=== PATIENT | female | born 1975 ===

== ENCOUNTER 2019-04-07 02:29 | Inpatient (IN) | payer SELFPAY ==
[2019-04-07] MEDS ORDERED: Nalbuphine 10 MG/1 ML Vial IVPUSH PRN (02:43)
[2019-04-07] MEDS ORDERED: Water For Irrigation,Sterile 1,000 ML Container IRR PRN (02:43)
[2019-04-07] MEDS ORDERED: Methylergonovine 0.2 MG/1 ML Amp IM PRN ×2 (02:43→04:34)
[2019-04-07] MEDS ORDERED: Ondansetron 4 MG/2 ML SDV IVPUSH PRN ×2 (02:43→04:34)
[2019-04-07] MEDS ORDERED: Sodium Chloride 0.9% 10 ML SDV IV PRN (02:43)
[2019-04-07] MEDS ORDERED: Carboprost Tromethamine 250 MCG/1 ML Amp IM PRN (02:43)
[2019-04-07] MEDS ORDERED: Butorphanol 1 MG/ML SDV IVPUSH PRN (02:43)
[2019-04-07] MEDS ORDERED: Tranexamic Acid 1,000 MG in Sodium Chloride 0.9% 100 ML IV PRN (02:43)
[2019-04-07] MEDS ORDERED: Misoprostol 200 MCG Tab PO PRN (02:43)
[2019-04-07] MEDS ORDERED: Sodium Chloride 0.9% 2.5 ML Syringe FLUSH PRN (02:43)
[2019-04-07] MEDS ORDERED: Sodium Chloride 0.9% 10 ML Syringe FLUSH PRN (02:43)
[2019-04-07] MEDS ORDERED: Lidocaine 1% 50 ML MDV INJECT PRN (02:43)
[2019-04-07] MEDS ORDERED: Oxytocin/0.9 % Sodium Chloride 30 UNIT/500 ML BAG IV SCH (02:45)
[2019-04-07] MEDS ORDERED: Clindamycin Phosphate in D5W 900 MG in Premix Bag 1 BAG IV SCH ×2 (02:45)
[2019-04-07] MEDS: Lactated Ringers 1,000 ML IV SCH ×2 (03:06→03:52)
--- NOTE | 2019-04-07 03:46 | PCM.PREANE ---
Preanesthetic Assessment - Procedure Proposed Procedure: Labor epidural - Anesthesia/Transfusion/Family Hx Anesthesia History: Prior Anesthesia Without Reaction Family History of Anesthesia Reaction: No - Review of Systems General: No Symptoms Pulmonary: No Symptoms Cardiovascular: No Symptoms Gastrointestinal: No Symptoms Neurological: No Symptoms Other: Reports: None - Physical Assessment NPO Status Date: 04/07/19 NPO Status Time: 03:24 Height: 5 ft 5 in Weight: 77.111 kg ASA Class: 2 Mental Status: Alert & Oriented x3 Airway Class: Mallampati = 2 Dentition: Reports: Normal Dentition Thyro-Mental Finger Breadths: 3 ROM/Head Extension: Full Lungs: Clear to Auscultation, Normal Respiratory Effort Cardiovascular: Regular Rate, Regular Rhythm Other: - 7 cm dilated after SROM - Lab Values: Laboratory Last Values WBC 10.11 K/uL (4.0-11.0) 04/07/19 02:58 RBC 4.49 M/uL (4.30-5.90) 04/07/19 02:58 Hgb 14.5 g/dL (12.0-16.0) 04/07/19 02:58 Hct 41.0 % (36.0-46.0) 04/07/19 02:58 MCV 91.3 fL (80.0-98.0) 04/07/19 02:58 MCH 32.3 pg (27.0-32.0) H 04/07/19 02:58 MCHC 35.4 g/dL (31.0-37.0) 04/07/19 02:58 RDW Std Deviation 45.8 fl (28.0-62.0) 04/07/19 02:58 RDW Coeff of Earl 14 % (11.0-15.0) 04/07/19 02:58 Plt Count 179 K/uL (150-400) 04/07/19 02:58 MPV 12.40 fL (7.40-12.00) H 04/07/19 02:58 Nucleated RBC % 0.0 /100WBC 04/07/19 02:58 Nucleated RBCs # 0 K/uL 04/07/19 02:58 - Allergies Allergies/Adverse Reactions: Allergies Allergy/AdvReac Type Severity Reaction Status Date / Time Penicillins Allergy unknown Verified 02/23/15 04:52 - Acknowledgements Anesthesia Type Planned: Epidural Pt an Appropriate Candidate for the Planned Anesthesia: Yes Alternatives and Risks of Anesthesia Discussed w Pt/Guardian: Yes Pt/Guardian Understands and Agrees with Anesthesia Plan: Yes PreAnesthesia Questionnaire - SUBSTANCE USE Smoking Status *Q: Never Smoker Second Hand Smoke Exposure: No Recreational Drug Use History: No - HOME MEDS Home Medications: Home Meds Acetaminophen/HYDROcodone [[place] 325-5 MG] 1 tab PO Q4H PRN #40 tab 02/24/15 [Rx ] Docusate Sodium [Colace] 100 mg PO BID #30 cap 02/24/15 [Rx] - CURRENT (IN HOUSE) MEDS Current Meds: Current Medications Butorphanol Tartrate (Stadol) 1 mg IVPUSH Q1H PRN PRN Reason: Pain Carboprost Tromethamine (Hemabate Ds) 250 mcg IM ASDIRECTED PRN PRN Reason: Post Hemorrhage Clindamycin Phosphate 900 mg/ (Premix) 50 mls @ 100 mls/hr IV Q8H [facility] Last Admin: 04/07/19 03:06 Dose: 100 mls/hr Lactated Ringer's (Ringers, Lactated) 1,000 mls @ 150 mls/hr IV ASDIRECTED [facility] Last Admin: 04/07/19 03:06 Dose: 150 mls/hr Oxytocin/Sodium Chloride (Oxytocin 30 Unit/500 Ml-Ns) 30 unit in 500 mls @ 500 mls/hr IV TITRATE [facility] Tranexamic Acid 1,000 mg/ (Sodium Chloride) 110 mls @ 660 mls/hr IV ONETIME PRN PRN Reason: Bleeding Lidocaine HCl (Xylocaine 1%) 50 ml INJECT ONETIME PRN PRN Reason: Laceration repair Methylergonovine Maleate (Methergine) 0.2 mg IM ASDIRECTED PRN PRN Reason: Post Hemorrhage Misoprostol (Cytotec) 200 mcg PO ONETIME PRN PRN Reason: Post Hemorrhage Nalbuphine HCl (Nubain) 10 mg IVPUSH Q1H PRN PRN Reason: Pain (severe 7-10) Ondansetron HCl (Zofran) 4 mg IVPUSH Q4H PRN PRN Reason: Nausea/Vomiting Sodium Chloride (Saline Flush) 10 ml FLUSH ASDIRECTED PRN PRN Reason: Keep Vein Open Sodium Chloride (Saline Flush) 2.5 ml FLUSH ASDIRECTED PRN PRN Reason: Keep Vein Open Sodium Chloride (Normal Saline) 10 ml IV ASDIRECTED PRN PRN Reason: IV Use Sterile Water (Sterile Water For Irrigation) 1,000 ml IRR ASDIRECTED PRN PRN Reason: delivery Discontinued Medications Fentanyl/Bupivacaine HCl (Minajdgb-Koesy-Oh 2 Mcg/Ml-0.125%) Confirm Administered Dose 100 mls @ as directed .ROUTE .[facility] ONE Stop: 04/07/19 03:19
[2019-04-07] MEDS ORDERED: Bisacodyl 10 MG Supp RECTAL PRN (04:34)
[2019-04-07] MEDS ORDERED: Lanolin 100% Cream 7 GM Tube TOP PRN (04:34)
[2019-04-07] MEDS ORDERED: Acetaminophen/oxyCODONE 325-5 MG Tab PO PRN ×2 (04:34)
[2019-04-07] MEDS ORDERED: diphenhydrAMINE 50 MG/ML SDV IVPUSH PRN (04:34)
--- NOTE | 2019-04-07 04:34 | PCM.DEL ---
L & D Note - General Info Date of Service: 04/07/19 Mother's Due Date: 04/29/19 - Delivery Note Labor: Spontaneous Delivery Outcome: Livebirth Infant Delivery Mode: Spontaneous Presentation: Left Occiput Anterior (CHRISTEN) Nuchal Cord: None Prep: Other Anesthesia Type: None Amniotic Fluid Description: Clear Episiotomy Type: None Laceration: None Placenta: Intact, Spontaneous Cord: 3 Vessels Estimated Blood Loss: 200 Resuscitation Needed: No : Suctioned Score 1 min: 8 Score 5 min: 9 - General Info Date of Service: 04/07/19 - Patient Data Weight - Most Recent: 77.111 kg Lab Results Last 24 Hours: Laboratory Results - last 24 hr 04/07/19 04/07/19 Range/Units 02:58 02:58 WBC 10.11 (4.0-11.0) K/uL RBC 4.49 (4.30-5.90) M/uL Hgb 14.5 (12.0-16.0) g/dL Hct 41.0 (36.0-46.0) % MCV 91.3 (80.0-98.0) fL MCH 32.3 H (27.0-32.0) pg MCHC 35.4 (31.0-37.0) g/dL RDW Std Deviation 45.8 (28.0-62.0) fl RDW Coeff of Earl 14 (11.0-15.0) % Plt Count 179 (150-400) K/uL MPV 12.40 H (7.40-12.00) fL Nucleated RBC % 0.0 /100WBC Nucleated RBCs # 0 K/uL Blood Type B POSITIVE Antibody Screen NEGATIVE Med Orders - Current: Current Medications Butorphanol Tartrate (Stadol) 1 mg IVPUSH Q1H PRN PRN Reason: Pain Carboprost Tromethamine (Hemabate Ds) 250 mcg IM ASDIRECTED PRN PRN Reason: Post Hemorrhage Clindamycin Phosphate 900 mg/ (Premix) 50 mls @ 100 mls/hr IV Q8H [facility] Last Admin: 04/07/19 03:06 Dose: 100 mls/hr Lactated Ringer's (Ringers, Lactated) 1,000 mls @ 150 mls/hr IV ASDIRECTED [facility] Last Admin: 04/07/19 03:52 Dose: 150 mls/hr Oxytocin/Sodium Chloride (Oxytocin 30 Unit/500 Ml-Ns) 30 unit in 500 mls @ 500 mls/hr IV TITRATE [facility] Tranexamic Acid 1,000 mg/ (Sodium Chloride) 110 mls @ 660 mls/hr IV ONETIME PRN PRN Reason: Bleeding Lidocaine HCl (Xylocaine 1%) 50 ml INJECT ONETIME PRN PRN Reason: Laceration repair Methylergonovine Maleate (Methergine) 0.2 mg IM ASDIRECTED PRN PRN Reason: Post Hemorrhage Misoprostol (Cytotec) 200 mcg PO ONETIME PRN PRN Reason: Post Hemorrhage Nalbuphine HCl (Nubain) 10 mg IVPUSH Q1H PRN PRN Reason: Pain (severe 7-10) Ondansetron HCl (Zofran) 4 mg IVPUSH Q4H PRN PRN Reason: Nausea/Vomiting Sodium Chloride (Saline Flush) 10 ml FLUSH ASDIRECTED PRN PRN Reason: Keep Vein Open Sodium Chloride (Saline Flush) 2.5 ml FLUSH ASDIRECTED PRN PRN Reason: Keep Vein Open Sodium Chloride (Normal Saline) 10 ml IV ASDIRECTED PRN PRN Reason: IV Use Sterile Water (Sterile Water For Irrigation) 1,000 ml IRR ASDIRECTED PRN PRN Reason: delivery Discontinued Medications Fentanyl/Bupivacaine HCl (Euwnmcwa-Ddbca-Gd 2 Mcg/Ml-0.125%) Confirm Administered Dose 100 mls @ as directed .ROUTE .[facility] ONE Stop: 04/07/19 03:19 - Problem List & Annotations (1) premature rupture of membranes (PPROM) delivered, current hospitalization SNOMED Code(s): 588050163, 828971306 Code(s): O42.919 - PRETRM MIGUEL A ROM, UNSP TIME BETW RUPT AND ONST LABR, UNSP TRI Status: Acute Current Visit: Yes - Problem List Review Problem List Initiated/Reviewed/Updated: Yes - My Orders Last 24 Hours: My Active Orders 04/07/19 02:43 Patient Status [ADT] Routine Heart Tones [RC] CONTINUOUS Non Stress Test [RC] PER UNIT ROUTINE May Shower [RC] ASDIRECTED Notify Provider [RC] PRN Up ad Lainey [RC] ASDIRECTED Vaginal Exam [RC] PRN Vital Signs [RC] PER UNIT ROUTINE Butorphanol [Stadol] 1 mg IVPUSH Q1H PRN Carboprost Tromethamine [Hemabate DS] 250 mcg IM ASDIRECTED PRN Lidocaine 1% [Xylocaine 1%] 50 ml INJECT ONETIME PRN Methylergonovine [Methergine] 0.2 mg IM ASDIRECTED PRN Nalbuphine [Nubain] 10 mg IVPUSH Q1H PRN Ondansetron [Zofran] 4 mg IVPUSH Q4H PRN Sodium Chloride 0.9% [Normal Saline] 10 ml IV ASDIRECTED PRN Sodium Chloride 0.9% [Saline Flush] 10 ml FLUSH ASDIRECTED PRN Sodium Chloride 0.9% [Saline Flush] 2.5 ml FLUSH ASDIRECTED PRN Tranexamic Acid [Cyklokapron] 1,000 mg Sodium Chloride 0.9% [Normal Saline] 100 ml IV ONETIME Water For Irrigation,Sterile [Sterile Water for Irrigation] 1,000 ml IRR ASDIRECTED PRN miSOPROStoL [Cytotec] 200 mcg PO ONETIME PRN Scalp Electrode [WOMSER] Per Unit Routine Peripheral IV Insertion Adult [OM.PC] Routine Resuscitation Status Routine 04/07/19 02:45 Clindamycin Phosphate in D5W [Cleocin in D5W] 900 mg Premix Bag 1 bag IV Q8H Lactated Ringers [Ringers, Lactated] 1,000 ml IV ASDIRECTED Oxytocin/0.9 % Sodium Chloride [Oxytocin 30 Unit/500 ML-NS] 30 unit in 500 ml IV TITRATE 04/07/19 02:58 RAPID PLASMA REAGIN, QUANT [REF] Stat 04/07/19 Breakfast Clear Liquid Diet [DIET]
[2019-04-07] MEDS ORDERED: Ketorolac 30 MG/ML SDV IVPUSH SCH (04:45)
[2019-04-07] MEDS ORDERED: Lactated Ringers 1,000 ML IV SCH (04:45)
--- NOTE | 2019-04-07 09:13 | HP ---
DATE OF : 1975 PRIMARY CARE PHYSICIAN: None PCP CHIEF COMPLAINT: Rupture of membranes. HISTORY OF PRESENT ILLNESS: This is a 43-year-old female. She is G8, P7. She presents at 36 and 6/7 weeks' gestation, spontaneous rupture of membranes, copious clear fluid at home. Good movement, irregular contractions. Initially 6 cm, 80%, posterior. She has had her care of a total of 3 visits in [place], [place]. As she desired to have minimal care, she declined genetic screening, declined all immunizations, declined glucose and CBC. She has not had a group B strep obtained yet. Records from [facility] have been obtained and are reviewed. She has had no ultrasounds since 20 weeks of gestation. Blood pressures during her visits have been normal, most recently 120/66 in January. PAST MEDICAL HISTORY: Negative for chronic illness. PAST SURGICAL HISTORY: Appendectomy in 2014. ALLERGIES: To penicillin, which she states causes a rash, records from [facility] anaphylaxis. CURRENT MEDICATIONS: vitamins. PAST OBSTETRIC HISTORY: She has had 7 vaginal deliveries, most recently in 2012, with the largest of 7 pounds 13 ounces. SOCIAL HISTORY: She is . She denies use of tobacco, alcohol, or street drugs. FAMILY HISTORY: Significant for mother with hypertension and hyperlipidemia. Father with lung cancer, hypertension, hyperlipidemia, and cerebrovascular accident. PHYSICAL EXAMINATION: VITAL SIGNS: Blood pressure 140/76, pulse of 87. heart tones are 130, moderate variability, accelerations present, no decelerations. Contractions are every 4 to 7 minutes. GENERAL: She is alert and oriented, in no acute distress. NECK: Supple without lymphadenopathy or thyromegaly. LUNGS: Clear bilaterally. CARDIOVASCULAR: Regular rate without murmur. ABDOMEN: Soft, gravid, nontender. Estimated weight of 3000 g. EXTREMITIES: Show trace edema. VAGINAL EXAM: 7, 80, -1 station. ASSESSMENT AND PLAN: 36 and 6/7 weeks' gestation, premature rupture of membranes with onset of labor. Unknown group B strep status. Unknown diabetes status. No immunizations during . We will admit for labor management. She requests epidural, and Anesthesia has been notified and is present. Clindamycin has been started for group B strep prophylaxis in the absence of culture results. She has category 1 heart tones at this time. ABRAHAM / ALVAREZ /[id number]
--- NOTE | 2019-04-07 09:28 | PCM48HPAN ---
Post Anesthesia Note - EVALUATION WITHIN 48HRS OF ANESTHETIC Vital Signs in Normal Range: Yes Patient Participated in Evaluation: Yes Respiratory Function Stable: Yes Airway Patent: Yes Cardiovascular Function Stable: Yes Hydration Status Stable: Yes Pain Control Satisfactory: Yes Nausea and Vomiting Control Satisfactory: Yes Mental Status Recovered: Yes - COMMENTS/OBSERVATIONS Free Text/Narrative:: Function fully returned. Has been up to the bathroom. No concerns.
--- NOTE | 2019-04-07 09:28 | PCM.POSTAN ---
POST ANESTHESIA ASSESSMENT - MENTAL STATUS Mental Status: Alert, Oriented - RESPIRATORY Respiratory Status: Respiratory Rate WNL, Airway Patent, O2 Saturation Stable - CARDIOVASCULAR CV Status: Pulse Rate WNL, Blood Pressure Stable - GASTROINTESTINAL GI Status: No Symptoms - POST OP HYDRATION Hydration Status: Adequate & Stable
[2019-04-07] MEDS: Docusate Sodium 100 MG Cap PO SCH ×2 (10:31→21:00)
--- NOTE | 2019-04-07 10:34 | OR ---
SURGEON: María Ventura M.D. DATE OF PROCEDURE: 04/07/2019 PREOPERATIVE DIAGNOSIS: A 36-6/7-week intrauterine , premature rupture of membranes with labor. POSTOPERATIVE DIAGNOSIS: A 36-6/7-week intrauterine , premature rupture of membranes with labor. PROCEDURES: Term spontaneous vaginal delivery, repair of second-degree laceration. PRIMARY SURGEON: María Ventura M.D. ANESTHESIA: Epidural. ESTIMATED BLOOD LOSS: Less than 200 mL. FINDINGS: Liveborn female, score of 8 and 9, weighing 3120 g. Placenta spontaneous, Schultze intact, with 3-vessel small second-degree perineal laceration repaired. COMPLICATIONS: None known. DISPOSITION: Mother and baby are in LDR in good condition. BRIEF HISTORY: This is a 43-year-old female, G8, P7. care has been 3 visits in [place], [place]. She requested minimal intervention. She did not receive her 28-week labs for Glucola. She did not receive any immunizations during , and she did not have any antepartum chromosomal screening for advanced maternal age, and she has not yet had a group B Strep. She presented with spontaneous rupture of membranes, 5-6 cm dilated, category 1 heart tones. She requested epidural. She was admitted. IV fluids were initiated. She received an epidural for pain control. Within 20 minutes after the epidural, she was complete. DESCRIPTION OF PROCEDURE: With the patient in dorsal lithotomy position, the patient pushed over 3 contractions to a 5+ station, at which time, the head was delivered spontaneously and atraumatically over the perineum with support with subsequent delivery of the 's shoulders and body without any difficulty. The infant was bulb suctioned by nose and mouth, and the cord was clamped x2 and cut after it had ceased to pulsate. The was a liveborn female, score of 8 and 9, weighing 3120 g. Pitocin was initiated after delivery of the to assist with the placenta, which was delivered spontaneously, Schultze intact with 3 vessels. Upon inspection of pelvis and perineum, there were no periurethral, vaginal sidewall, cervical, or rectal lacerations. At the site of a prior repair, there was a separation of a small second-degree perineal laceration that was repaired using a running lock suture of 3-0 Polysorb for the vaginal mucosa with a deep running suture of the same for the perineum and subcuticular suture of the same for the skin. Final sponge, needle, and instrument counts were correct. The patient had received clindamycin 900 mg as well as obtaining a group B Strep culture prior to delivery. There were no known complications. Mother and baby remained in LDR in good condition. ABRAHAM PINO /[id number]
[2019-04-07] MEDS ORDERED: Acetaminophen 500 MG Tab PO PRN (23:24)
[2019-04-07] MEDS: Ibuprofen 800 MG Tab PO PRN (23:35)
[2019-04-08] MEDS: Ibuprofen 800 MG Tab PO PRN ×2 (07:50→16:52)
--- NOTE | 2019-04-08 07:51 | PCM.PNPP ---
- General Info Date of Service: 04/08/19 Subjective Update: Patient without complaints this morning. Functional Status: Reports: Pain Controlled, Tolerating Diet, Ambulating, Urinating - Review of Systems General: Reports: No Symptoms HEENT: Reports: No Symptoms Pulmonary: Reports: No Symptoms Cardiovascular: Reports: No Symptoms Gastrointestinal: Reports: No Symptoms Genitourinary: Reports: No Symptoms Musculoskeletal: Reports: No Symptoms Skin: Reports: No Symptoms Neurological: Reports: No Symptoms Psychiatric: Reports: No Symptoms - Patient Data Vital Signs - Most Recent: Last Vital Signs Temp 36.1 C 04/07/19 20:30 Pulse 75 04/07/19 20:30 Resp 15 04/07/19 20:30 BP 134/83 04/07/19 20:30 Pulse Ox 98 04/07/19 20:30 Weight - Most Recent: 77.111 kg Lab Results - Last 24 Hours: Laboratory Results - last 24 hr 04/08/19 Range/Units 05:36 Hgb 12.7 (12.0-16.0) g/dL Hct 37.9 (36.0-46.0) % Med Orders - Current: Current Medications Acetaminophen (Tylenol Extra Strength) 1,000 mg PO Q6H PRN PRN Reason: Abdominal Pain Bisacodyl (Dulcolax) 10 mg RECTAL ONETIME PRN PRN Reason: Constipation Diphenhydramine HCl (Benadryl) 25 mg IVPUSH Q6H PRN PRN Reason: Itching or Nausea Docusate Sodium (Colace) 100 mg PO BID [facility] Last Admin: 04/07/19 21:00 Dose: Not Given Emollient Ointment (Lansinoh Hpa) 0 gm TOP ASDIRECTED PRN PRN Reason: Sore Nipples Lactated Ringer's (Ringers, Lactated) 1,000 mls @ 125 mls/hr IV ASDIRECTED [facility] Ibuprofen (Motrin) 800 mg PO Q8H PRN PRN Reason: mild pain or fever Ibuprofen (Motrin) 800 mg PO Q8H PRN PRN Reason: Abdominal Pain Last Admin: 04/07/19 23:35 Dose: 800 mg Methylergonovine Maleate (Methergine) 0.2 mg IM ONETIME PRN PRN Reason: Excessive Vaginal Bleeding Ondansetron HCl (Zofran) 4 mg IVPUSH Q4H PRN PRN Reason: Nausea/Vomiting Discontinued Medications Butorphanol Tartrate (Stadol) 1 mg IVPUSH Q1H PRN PRN Reason: Pain Carboprost Tromethamine (Hemabate Ds) 250 mcg IM ASDIRECTED PRN PRN Reason: Post Hemorrhage Clindamycin Phosphate 900 mg/ (Premix) 50 mls @ 100 mls/hr IV Q8H [facility] Last Admin: 04/07/19 03:06 Dose: 100 mls/hr Lactated Ringer's (Ringers, Lactated) 1,000 mls @ 150 mls/hr IV ASDIRECTED [facility] Last Admin: 04/07/19 03:52 Dose: 150 mls/hr Oxytocin/Sodium Chloride (Oxytocin 30 Unit/500 Ml-Ns) 30 unit in 500 mls @ 500 mls/hr IV TITRATE [facility] Last Admin: 04/07/19 04:38 Dose: 500 mls/hr Tranexamic Acid 1,000 mg/ (Sodium Chloride) 110 mls @ 660 mls/hr IV ONETIME PRN PRN Reason: Bleeding Fentanyl/Bupivacaine HCl (Axsigyvx-Akbfi-Tb 2 Mcg/Ml-0.125%) Confirm Administered Dose 100 mls @ as directed .ROUTE .[facility] ONE Stop: 04/07/19 03:19 Lidocaine HCl (Xylocaine 1%) 50 ml INJECT ONETIME PRN PRN Reason: Laceration repair Methylergonovine Maleate (Methergine) 0.2 mg IM ASDIRECTED PRN PRN Reason: Post Hemorrhage Misoprostol (Cytotec) 200 mcg PO ONETIME PRN PRN Reason: Post Hemorrhage Nalbuphine HCl (Nubain) 10 mg IVPUSH Q1H PRN PRN Reason: Pain (severe 7-10) Ondansetron HCl (Zofran) 4 mg IVPUSH Q4H PRN PRN Reason: Nausea/Vomiting Sodium Chloride (Saline Flush) 10 ml FLUSH ASDIRECTED PRN PRN Reason: Keep Vein Open Sodium Chloride (Saline Flush) 2.5 ml FLUSH ASDIRECTED PRN PRN Reason: Keep Vein Open Sodium Chloride (Normal Saline) 10 ml IV ASDIRECTED PRN PRN Reason: IV Use Sterile Water (Sterile Water For Irrigation) 1,000 ml IRR ASDIRECTED PRN PRN Reason: delivery Last Admin: 04/07/19 04:39 Dose: 1,000 ml - Infant Interaction Disposition, : [place] to Nursery Interaction: Not Interacting Feeding: Attempted ; Nursed Fair/Poor, Bottle Fed Infant - Recovery Exam Fundal Tone: Firm Fundal Level: 1 Fingerbreadths Below Umbilicus Fundal Placement: Midline Lochia Amount: Scant Lochia Color: Rubra/Red Episiotomy/Laceration: None Bladder Status: Voiding Urinary Elimination: Voided - Exam General: Alert, Oriented Neck: Supple Lungs: Clear to Auscultation, Normal Respiratory Effort Cardiovascular: Regular Rate, Regular Rhythm GI/Abdominal Exam: Soft, Non-Tender Extremities: Non-Tender, No Pedal Edema Skin: Warm, Dry, Intact Neurological: No New Focal Deficit Psy/Mental Status: Alert, Normal Affect, Normal Mood - Problem List & Annotations (1) premature rupture of membranes (PPROM) delivered, current hospitalization SNOMED Code(s): 993301645, 694905228 Code(s): O42.919 - PRETRM MIGUEL A ROM, UNSP TIME BETW RUPT AND ONST LABR, UNSP TRI Status: Acute Current Visit: Yes - Problem List Review Problem List Initiated/Reviewed/Updated: Yes - My Orders Last 24 Hours: My Active Orders 04/07/19 23:24 Acetaminophen [Tylenol Extra Strength] 1,000 mg PO Q6H PRN Ibuprofen [Motrin] 800 mg PO Q8H PRN - Assessment Assessment:: 43yo P8 s/p at 36w6d, PPD#1 - Plan Plan:: Patient undecided if she would like discharge home today or tomorrow. Reviewed discharge instructions, will place order if baby able to be discharged and patient desires to go home.
[2019-04-08] MEDS ORDERED: Hydrocortisone 2.5% Crm 30 GM Tube TOP PRN (07:57)
[2019-04-08] MEDS ORDERED: Witch Hazel Medicated Pads 40/Jar TOP PRN (07:57)
[2019-04-08] MEDS: Docusate Sodium 100 MG Cap PO SCH ×2 (09:25→21:47)
[2019-04-08] MEDS ORDERED: Ibuprofen 800 MG Tab PO PRN (11:00)
[2019-04-09] MEDS: Docusate Sodium 100 MG Cap PO SCH (08:15)
[2019-04-09] MEDS: Ibuprofen 800 MG Tab PO PRN (08:15)
[2019-04-09 08:17] VITALS: BP 121/86; PULSE 66
--- NOTE | 2019-04-09 08:35 | PCM.PNPP ---
- General Info Date of Service: 04/09/19 Subjective Update: Patient reports hemorrhoid swelling down today. No other concerns. Functional Status: Reports: Pain Controlled, Tolerating Diet, Ambulating, Urinating - Review of Systems General: Reports: No Symptoms HEENT: Reports: No Symptoms Pulmonary: Reports: No Symptoms Cardiovascular: Reports: No Symptoms Gastrointestinal: Reports: No Symptoms Genitourinary: Reports: No Symptoms Musculoskeletal: Reports: No Symptoms Skin: Reports: No Symptoms Neurological: Reports: No Symptoms Psychiatric: Reports: No Symptoms - Patient Data Vital Signs - Most Recent: Last Vital Signs Temp 36.4 C 04/09/19 08:12 Pulse 66 04/09/19 08:12 Resp 18 04/09/19 08:12 BP 121/86 04/09/19 08:12 Pulse Ox 97 04/09/19 08:12 Weight - Most Recent: 77.111 kg Med Orders - Current: Current Medications Acetaminophen (Tylenol Extra Strength) 1,000 mg PO Q6H PRN PRN Reason: Abdominal Pain Bisacodyl (Dulcolax) 10 mg RECTAL ONETIME PRN PRN Reason: Constipation Diphenhydramine HCl (Benadryl) 25 mg IVPUSH Q6H PRN PRN Reason: Itching or Nausea Docusate Sodium (Colace) 100 mg PO BID FELISHA Last Admin: 04/09/19 08:15 Dose: Not Given Emollient Ointment (Lansinoh Hpa) 0 gm TOP ASDIRECTED PRN PRN Reason: Sore Nipples Hydrocortisone (Proctozone-Hc 2.5% Crm) 0 gm TOP 6XDAY PRN PRN Reason: Itching Lactated Ringer's (Ringers, Lactated) 1,000 mls @ 125 mls/hr IV ASDIRECTED [facility] Ibuprofen (Motrin) 800 mg PO Q8H PRN PRN Reason: mild pain or fever Ibuprofen (Motrin) 800 mg PO Q8H PRN PRN Reason: Abdominal Pain Last Admin: 04/09/19 08:15 Dose: 800 mg Methylergonovine Maleate (Methergine) 0.2 mg IM ONETIME PRN PRN Reason: Excessive Vaginal Bleeding Ondansetron HCl (Zofran) 4 mg IVPUSH Q4H PRN PRN Reason: Nausea/Vomiting Witch Cecy (Tucks) 1 pad TOP ASDIRECTED PRN PRN Reason: comfort care Last Admin: 04/08/19 16:53 Dose: 1 tub Discontinued Medications Butorphanol Tartrate (Stadol) 1 mg IVPUSH Q1H PRN PRN Reason: Pain Carboprost Tromethamine (Hemabate Ds) 250 mcg IM ASDIRECTED PRN PRN Reason: Post Hemorrhage Clindamycin Phosphate 900 mg/ (Premix) 50 mls @ 100 mls/hr IV Q8H [facility] Last Admin: 04/07/19 03:06 Dose: 100 mls/hr Lactated Ringer's (Ringers, Lactated) 1,000 mls @ 150 mls/hr IV ASDIRECTED [facility] Last Admin: 04/07/19 03:52 Dose: 150 mls/hr Oxytocin/Sodium Chloride (Oxytocin 30 Unit/500 Ml-Ns) 30 unit in 500 mls @ 500 mls/hr IV TITRATE [facility] Last Admin: 04/07/19 04:38 Dose: 500 mls/hr Tranexamic Acid 1,000 mg/ (Sodium Chloride) 110 mls @ 660 mls/hr IV ONETIME PRN PRN Reason: Bleeding Fentanyl/Bupivacaine HCl (Ynesghpp-Xryaw-Zg 2 Mcg/Ml-0.125%) Confirm Administered Dose 100 mls @ as directed .ROUTE .STK-MED ONE Stop: 04/07/19 03:19 Last Admin: 04/08/19 08:32 Dose: Not Given Lidocaine HCl (Xylocaine 1%) 50 ml INJECT ONETIME PRN PRN Reason: Laceration repair Methylergonovine Maleate (Methergine) 0.2 mg IM ASDIRECTED PRN PRN Reason: Post Hemorrhage Misoprostol (Cytotec) 200 mcg PO ONETIME PRN PRN Reason: Post Hemorrhage Nalbuphine HCl (Nubain) 10 mg IVPUSH Q1H PRN PRN Reason: Pain (severe 7-10) Ondansetron HCl (Zofran) 4 mg IVPUSH Q4H PRN PRN Reason: Nausea/Vomiting Sodium Chloride (Saline Flush) 10 ml FLUSH ASDIRECTED PRN PRN Reason: Keep Vein Open Sodium Chloride (Saline Flush) 2.5 ml FLUSH ASDIRECTED PRN PRN Reason: Keep Vein Open Sodium Chloride (Normal Saline) 10 ml IV ASDIRECTED PRN PRN Reason: IV Use Sterile Water (Sterile Water For Irrigation) 1,000 ml IRR ASDIRECTED PRN PRN Reason: delivery Last Admin: 04/07/19 04:39 Dose: 1,000 ml - Infant Interaction Disposition, : at Bedside Infant Interaction: Not Interacting Feeding: Attempted ; Nursed Fair/Poor, Bottle Fed Infant - Recovery Exam Fundal Tone: Firm Fundal Level: 3 Fingerbreadths Below Umbilicus Fundal Placement: Midline Lochia Amount: Scant Lochia Color: Rubra/Red Episiotomy/Laceration: None Bladder Status: Voiding Urinary Elimination: Voided - Exam General: Alert, Oriented HEENT: Pupils Equal Neck: Supple Lungs: Clear to Auscultation, Normal Respiratory Effort Cardiovascular: Regular Rate, Regular Rhythm GI/Abdominal Exam: Normal Bowel Sounds, Soft, Non-Tender Extremities: Normal Inspection, Non-Tender, No Pedal Edema Skin: Warm, Dry, Intact Neurological: No New Focal Deficit Psy/Mental Status: Alert, Normal Affect, Normal Mood - Problem List & Annotations (1) premature rupture of membranes (PPROM) delivered, current hospitalization SNOMED Code(s): 032755469, 936077203 Code(s): O42.919 - PRETRM MIGUEL A ROM, UNSP TIME BETW RUPT AND ONST LABR, UNSP TRI Status: Acute Current Visit: Yes - Problem List Review Problem List Initiated/Reviewed/Updated: Yes - My Orders Last 24 Hours: My Active Orders 04/08/19 07:57 Ready for Discharge [RC] PER UNIT ROUTINE Hydrocortisone [Proctozone-HC 2.5% Crm] See Dose Instructions TOP 6XDAY PRN Sina Sam [Tucks] 1 pad TOP ASDIRECTED PRN 04/08/19 07:58 Sitz Bath [OM.PC] Per Unit Routine 04/09/19 08:32 Ready for Discharge [RC] PER UNIT ROUTINE - Assessment Assessment:: 43yo P8 s/p at 36w6d, PPD#2 - Plan Plan:: Discharge home today. Reviewed discharge instructions.
== END 2019-04-09 12:45 | disposition home or self-care (01) | DRG 560 ==
LOC: MW.OBCHECK 02:29 → MW.OB 02:30 → MW.OBCHECK 02:43 → OBSVTOIN 04:10 → MW.OB 10:00
PROVIDERS: ADMIT Obstetrics & Gynecology; ATTEND Obstetrics & Gynecology
PROC: 10E0XZZ Delivery of Products of Conception, External Approach (ICD-10-PCS; principal; 2019-04-07)
PROC: 0KQM0ZZ Repair Perineum Muscle, Open Approach (ICD-10-PCS; 2019-04-07)
DX: O60.14X0 Preterm labor third trimester with preterm delivery third trimester, not applicable or unspecified (principal); O70.1 Second degree perineal laceration during delivery; Z3A.36 36 weeks gestation of pregnancy; Z37.0 Single live birth; Z88.0 Allergy status to penicillin
CPT/HCPCS: 36415; 51701; 59025; 59409; 82803; 85014; 85018; 85027; 86593; 86850; 86900; 86901; 87081; A9270-GY; J2590; J3490; J7120